=== PATIENT | male | born 1965 | race Two or more races ===

== ENCOUNTER 2025-07-20 07:36 | Emergency (ER) | payer OTHER ==
[~2025-07-20] VITALS: Ht 162.6 cm; Wt 59.0 kg
[~2025-07-20 07:36] MED LIST: ADULT LOW DOSE81 M1 PO; ALTACE10 MG PO; ALTACE2.5 MG PO; ASA325 M1 PO; CLONAZEPAM2 MG PO; LIPITOR40 MG PO; PEPCID20 MG PO; PLAVIX75 MG PO; TOPROL XL50 MG PO; TRAMADOL HCL50 MG PO
[2025-07-20] MEDS ORDERED: NORVASC5 MG PO (07:49)
[2025-07-20] MEDS ORDERED: CETIRIZINE HCL 5 MG/5 ML ML PO ONE (08:30)
[2025-07-20] MEDS ORDERED: BUTALB/ACETAMINOPHEN/CAFFEINE 1 TAB TABLET PO ONE (08:30)
[2025-07-20 08:39] LABS: BASO % 0.7 % (0.1-1.2); EOS # 0.50 (0.04-0.54); EOS % 5.4 % (0.7-7.0); LYMPH # 2.04 (1.18-3.74); LYMPH % 22.1 % (19.3-53.1); MEAN PLATELET VOLUME 10.70 fl (9.4-12.4); MONO # 0.50 (0.24-0.82); MONO % 5.4 % (4.7-12.5); NEUT # 6.10 (1.56-6.13); NEUT % 66.1 % (34.0-71.1); RED CELL DISTRIBUTION WIDTH 13.3 % (11.6-14.4)
[2025-07-20 09:18] LABS: COVID-19 AG NEGATIVE (NEGATIVE)
[2025-07-20] MEDS ORDERED: ZYRTEC10 MG PO (09:30)
== END 2025-07-20 09:39 | disposition home or self-care (01) ==
LOC: ER 07:37
PROVIDERS: General Practice
DX: J00 Acute nasopharyngitis [common cold] (principal); I10 Essential (primary) hypertension; Z20.822 Contact with and (suspected) exposure to COVID-19; Z88.0 Allergy status to penicillin; Z88.8 Allergy status to other drugs, medicaments and biological substances; Z87.09 Personal history of other diseases of the respiratory system